=== PATIENT | male | born 1975 | race American Indian/Alaskan Native ===

== ENCOUNTER 2018-02-06 07:30 | Day surgery (SDC) | payer MEDICAID ==
[2018-02-06] MEDS: Lactated Ringers 1,000 ML IV SCH ×2 (06:41→10:00)
[~2018-02-06 07:30] MED LIST: Acetaminophen 500 MG Tab PO ONE; Bupivacaine 0.5%/EPINEPHrine 1:200,000 50 ML MDV ONE; Dexamethasone 4 MG/ML SDV ONE; Gabapentin 300 MG Cap PO ONE; Glycopyrrolate 0.2 MG/ML 5 ML MDV ONE; Ketamine 500 MG/5 ML MDV IV SCH; Neostigmine Methylsulfate 1 MG/ML 5 ML Syringe ONE; Ondansetron 4 MG/2 ML SDV ONE; Povidone-Iodine 10% Soln 118.25 ML Bottle ONE; Propofol 200 MG/20 ML SDV ONE; Rocuronium 50 MG/5 ML Vial ONE; Scopolamine 1.5 MG Transdermal Patch TOP ONE; Succinylcholine 200 MG/10 ML MDV ONE; Thrombin (Bovine) 5,000 Unit Kit ONE; ceFAZolin 2 GM in Premix Bag 1 BAG IV ONE; fentaNYL 250 MCG/5 ML SDV ONE
[2018-02-06] MEDS ORDERED: fentaNYL 250 MCG/5 ML SDV ONE (07:37)
[2018-02-06] MEDS ORDERED: fentaNYL 100 MCG/2 ML SDV ONE (08:53)
[2018-02-06] MEDS ORDERED: hydrOXYzine HCl 100 MG/2 ML SDV IM ONE (09:08)
[2018-02-06] MEDS ORDERED: Sennosides 8.6 MG Tab PO PRN (09:36)
[2018-02-06] MEDS ORDERED: diphenhydrAMINE 25 MG Cap PO PRN (09:36)
[2018-02-06] MEDS ORDERED: Zolpidem 5 MG Tab PO PRN (09:36)
[2018-02-06] MEDS ORDERED: Magnesium Hydroxide 400 MG/5 ML Susp 30 ML Cup PO PRN (09:36)
[2018-02-06] MEDS ORDERED: Morphine 4 MG/ML Syringe IVPUSH PRN (09:36)
[2018-02-06] MEDS ORDERED: Naloxone 0.4 MG/ML SDV IVPUSH PRN (09:36)
[2018-02-06] MEDS ORDERED: Gabapentin 300 MG Cap PO SCH (10:00)
[2018-02-06] MEDS: HYDROmorphone 1 MG/ML Syringe IVPUSH PRN ×4 (11:37→22:21)
[2018-02-06] MEDS: Acetaminophen/oxyCODONE 325-5 MG Tab PO PRN ×3 (12:55→21:09)
--- NOTE | 2018-02-06 13:32 | OR ---
DATE OF PROCEDURE: 02/06/2018 PREOPERATIVE DIAGNOSES: 1. Cervical stenosis, C5-C6. 2. Cervical myelopathy, C5-C6. 3. Cervical radiculopathy, C5-C6. POSTOPERATIVE DIAGNOSES: 1. Cervical stenosis, C5-C6. 2. Cervical myelopathy, C5-C6. 3. Cervical radiculopathy, C5-C6. PROCEDURES: 1. Anterior cervical diskectomy and fusion, C5-C6. 2. Anterior instrumentation, C5-C6. 3. Allograft, C5-C6. 4. Interbody device placement, C5-C6. ANESTHESIA: General endotracheal intubation. FLUID: Lactated Ringer solution. ESTIMATED BLOOD LOSS: 25 mL. COMPLICATIONS: None. SPECIMEN: None. DISCHARGE DISPOSITION: Stable to PACU. INSTRUMENTATION: [employer] AGX plate 20 mm x 9 mm and then the spacer is 10.5 x 20 mm, 7 degree and 9 mm height with two 18 mm x 3.6 mm variable angle screws. INDICATIONS FOR THE PROCEDURE: The patient was seen preoperatively in the clinic. He had already seen another spine surgeon, who wanted him to quit smoking prior to doing the above- mentioned procedure and concurred with the procedure choice. The patient had been working on smoking cessation. He had been found to have a myelomalacia on his MRI for that reason, we proceeded with surgery. Risks and benefits of the procedure were explained with the patient. Informed consent was obtained. DESCRIPTION OF PROCEDURE: The patient was seen preoperatively by myself and the Anesthesia staff in the preoperative holding area where the operative site was marked. He was brought to the operative suite by Anesthesia staff, where general anesthesia was administered. Neuromonitoring leads were placed and normal at baseline. The arms were tucked. A shoulder towel was placed underneath his shoulders. The shoulders were taped. We did confirm prior to prepping and draping that we could obtain adequate visualization of the fluoroscopy unit. We then prepped and draped the patient in a sterile manner. We draped the fluoroscopy unit in a sterile manner. The time-out was called identifying the correct patient, correct procedure, and the correct site, and the antibiotics had begun within appropriate period of time. Lateral fluoroscopy was then used to visualize the C5-C6 interspace and an incision in an oblique manner was made just medial to sternocleidomastoid to that level of the right and carried down to the platysma. Bleeding during the case was controlled. Bovie electrocautery as well as bipolar electrocautery, and Weitlaner were used for retraction. I went over the medial side of the sternocleidomastoid to the fascia and then bluntly dissected down to the prevertebral space. We then used a 40 mm and 45 mm narrow Shadow-Line retractors for retraction and then confirmed the C5-C6 interspace with the Bovie and lateral fluoroscopy. We then cleared the interspace and then used a deep #15 blade to go through the anterior annulus and then removed as much of the disk as we could with pituitaries. I then used the pituitaries as well as rongeurs and a curette to go down and using the intervertebral uppers edge burnisher to go down to the posterior longitudinal ligament and remove as much as disk as possible. I also removed the inferior lip of the superior vertebral body with #2 Kerrison. I then used a nerve hook to go through the posterior longitudinal ligament and then used #2 Kerrison to divide the posterior longitudinal ligament. I did undermine the ligament with a curette superiorly and inferiorly along the vertebral bodies as well. The entire cord was visualized medial to lateral on both sides. This was done because the patient had myelomalacia. We want to make sure we did a thorough decompression. The bleeding during the case at times was controlled with Floseal as well as Gel-Foam and cottonoids. There was a large epidural vein on the patient's left that we used Floseal for, bleeding was controlled without an incident. The sequential spacers were then used and then I finally settled on a 9 mm high wide spacer. I then cleaned up the endplates with the drill and then inserted the spacer again and confirming there was a good position on lateral fluoroscopy. We then inserted our final implant and then all the screw holes and then placed our screws and then took final films that showed the endplate to be in good position. We then copiously irrigated with 2 L of Betadine infused irrigation followed by examination of the prevertebral space and I did use bipolar electrocautery to just take care of any little oozing areas and then placed Floseal at the base and then tamped this dry and then inserted my drain and taken out the lateral side of the wound. I then placed three 2-0 Vicryl stitches to the platysma followed by 3-0 Monocryl, followed by sterile dressing and an Op-Site and placed into the BORIS drain. We did run final motors after closure, which were normal. The patient was then transferred to the hospital bed and taken to the PACU in stable condition. Chino Hagan DO /[id number]
[2018-02-06] MEDS ORDERED: valACYclovir 1,000 MG Tab PO SCH (14:00)
[2018-02-06] MEDS: valACYclovir 1,000 MG Tab PO SCH ×2 (14:53→20:50)
[2018-02-06] MEDS: ceFAZolin 1 GM in Premix Bag 1 BAG IV SCH ×2 (15:02→22:19)
[2018-02-06] MEDS ORDERED: ceFAZolin 1 GM in Sodium Chloride 0.9% 50 ML IV SCH (16:00)
[2018-02-06] MEDS: Gabapentin 300 MG Cap PO SCH ×2 (17:01→21:11)
[2018-02-07] MEDS: HYDROmorphone 1 MG/ML Syringe IVPUSH PRN ×3 (00:25→07:12)
[2018-02-07] MEDS: Acetaminophen/oxyCODONE 325-5 MG Tab PO PRN ×3 (01:12→10:01)
[2018-02-07] MEDS: Gabapentin 300 MG Cap PO SCH ×2 (05:12→10:01)
--- NOTE | 2018-02-07 07:02 | PCM.DCSUM1 ---
Discharge Summary - Discharge Data Discharge Date: 02/07/18 Discharge Disposition: Home, Self-Care 01 Condition: Good - Patient Summary/Data Operative Procedure(s) Performed: acdf c5-6 Consults: Consultations 02/06/18 09:36 OT Evaluation and Treatment [CONS] Routine Please Evaluate and Treat. OT Reason for Consult: Strengthening This query below is only for informational purposes and is not editable. PT Evaluation and Treatment [CONS] Routine Please Evaluate and Treat. PT Reason for Consult: Strengthening This query below is only for informational purposes and is not editable. Respiratory Care Assess and Treatment [CONS] Routine Comment: Physician Instructions: ost Op Pneumonia Prevention - Patient Instructions Diet: Usual Diet as Tolerated Activity: Apply Ice, As Tolerated, No Strenuous Activities Driving: Do Not Drive Showering/Bathing: May Shower Wound/Incision Care: Keep Operative Site/Wound Site Clean and Dry, Change Dressing Daily Notify Provider of: Fever, Increased Pain, Swelling and Redness, Drainage, Nausea and/or Vomiting - Discharge Plan Prescriptions/Med Rec: Acetaminophen/oxyCODONE [Percocet 325-5 MG] 1 tab PO Q6HR #120 tablet Hydrocodone/Acetaminophen [Soudan 10-325 Tablet] 1 tab PO Q6HR #120 tablet Home Medications: Home Meds Cholecalciferol (Vitamin D3) [Vitamin D3] 5,000 unit PO DAILY 12/18/17 [History] Clotrimazole [Clotrimazole 1%] 1 strip TOP TID 12/18/17 [History] Cyclobenzaprine [Flexeril] 1 tab PO Q6H PRN 12/18/17 [History] Gabapentin [Neurontin] 600 mg PO QID 12/18/17 [History] Lisinopril 30 mg PO DAILY 12/18/17 [History] Omeprazole 40 mg PO DAILY 12/18/17 [History] Triamcinolone Acetonide [Triamcinolone Acetonide 0.1% Crm] 1 strip TOP TID 12/18 [History] valACYclovir HCl [valACYclovir] 1,000 mg PO TID 12/18/17 [History] Cider Vinegar [Apple Cider Vinegar] 1 tab PO DAILY 02/06/18 [History] Coffee Extract [Green Coffee Gardner] 400 mg PO DAILY 02/06/18 [History] Forskolin 1 tab PO DAILY 02/06/18 [History] Acetaminophen/oxyCODONE [Percocet 325-5 MG] 1 tab PO Q6HR #120 tablet 02/07/18 [ Rx] Hydrocodone/Acetaminophen [Soudan 10-325 Tablet] 1 tab PO Q6HR #120 tablet [Rx] Patient Handouts: Anterior Cervical Diskectomy and Fusion - General Info Date of Service: 02/07/18 Functional Status: Reports: Pain Controlled, Tolerating Diet, Ambulating, Urinating - Review of Systems General: Reports: No Symptoms HEENT: Reports: No Symptoms Pulmonary: Reports: No Symptoms Cardiovascular: Reports: No Symptoms Gastrointestinal: Reports: No Symptoms Genitourinary: Reports: No Symptoms Musculoskeletal: Reports: Neck Pain, Shoulder Pain Skin: Reports: No Symptoms Neurological: Reports: No Symptoms Psychiatric: Reports: No Symptoms - Patient Data Vitals - Most Recent: Last Vital Signs Temp 97.8 F 02/07/18 03:10 Pulse 94 02/07/18 03:10 Resp 16 02/07/18 03:10 BP 146/88 H 02/07/18 03:10 Pulse Ox 95 02/07/18 03:10 Weight - Most Recent: 266 lb 9.6 oz I&O - Last 24 hours: Intake & Output 02/06/18 02/06/18 02/07/18 14:59 22:59 06:59 Intake Total 1661 1950 1546 Output Total 800 1500 1428 Balance 861 450 118 Med Orders - Current: Current Medications Diphenhydramine HCl (Benadryl) 25 mg PO Q4H PRN PRN Reason: Itching Gabapentin (Neurontin) 600 mg PO QID [facility] Last Admin: 02/07/18 05:12 Dose: 600 mg Hydromorphone HCl (Dilaudid) 2 mg IVPUSH Q2H PRN PRN Reason: Pain Last Admin: 02/07/18 03:03 Dose: 2 mg Lactated Ringer's (Ringers, Lactated) 1,000 mls @ 100 mls/hr IV ASDIRECTED [facility] Last Admin: 02/06/18 10:00 Dose: 100 mls/hr Magnesium Hydroxide (Milk Of Magnesia) 30 ml PO DAILY PRN PRN Reason: Constipation Naloxone HCl (Narcan) 0.2 mg IVPUSH ONETIME PRN PRN Reason: Oversedation Oxycodone/Acetaminophen (Percocet 325-5 Mg) 2 tab PO Q4H PRN PRN Reason: Pain Last Admin: 02/07/18 05:13 Dose: 2 tab Senna (Senna) 8.6 mg PO BID PRN PRN Reason: Constipation Valacyclovir HCl (Valtrex) 1,000 mg PO TID [facility] Last Admin: 02/06/18 20:50 Dose: 1,000 mg Zolpidem Tartrate (Ambien) 5 mg PO BEDTIME PRN PRN Reason: Sleep Discontinued Medications Acetaminophen (Tylenol Extra Strength) 1,000 mg PO ONETIME ONE Stop: 02/06/18 06:01 Last Admin: 02/06/18 05:55 Dose: 1,000 mg Bupivacaine HCl/Epinephrine Bitart (Marcaine 0.5%/Epinephrine 1:200,000) Confirm Administered Dose 50 ml .ROUTE .STK-MED ONE Stop: 02/06/18 07:10 Last Admin: 02/06/18 08:48 Dose: 10 ml Dexamethasone (Dexamethasone) Confirm Administered Dose 4 mg .ROUTE .STK-MED ONE Stop: 02/06/18 07:16 Fentanyl (Sublimaze) Confirm Administered Dose 250 mcg .ROUTE .STK-MED ONE Stop: 02/06/18 07:15 Fentanyl (Sublimaze) Confirm Administered Dose 250 mcg .ROUTE .STK-MED ONE Stop: 02/06/18 07:38 Fentanyl (Sublimaze) Confirm Administered Dose 100 mcg .ROUTE .STK-MED ONE Stop: 02/06/18 08:54 Gabapentin (Neurontin) 300 mg PO ONETIME ONE Stop: 02/06/18 06:01 Last Admin: 02/06/18 05:55 Dose: 300 mg Gabapentin (Neurontin) 600 mg PO QID [facility] Last Admin: 02/06/18 11:08 Dose: Not Given Glycopyrrolate (Robinul) Confirm Administered Dose 1 mg .ROUTE .STK-MED ONE Stop: 02/06/18 07:16 Hydroxyzine HCl (Vistaril) 100 mg IM ONETIME ONE Stop: 02/06/18 09:09 Last Admin: 02/06/18 09:12 Dose: 100 mg Cefazolin Sodium/Dextrose 2 gm (/ Premix) 50 mls @ 100 mls/hr IV ONETIME ONE Stop: 02/06/18 06:29 Last Admin: 02/06/18 07:20 Dose: 100 mls/hr Ketamine HCl 100 mg/ Sodium (Chloride) 100 mls @ 24.6 mls/hr IV ASDIRECTED [facility] Propofol (Diprivan 100 Ml) Confirm Administered Dose 100 mls @ as directed .ROUTE .STK-MED ONE Stop: 02/06/18 07:19 Cefazolin Sodium 1 gm/ Sodium (Chloride) 50 mls @ 100 mls/hr IV Q8H [facility] Stop: 02/07/18 00:29 Cefazolin Sodium/Dextrose 1 gm (/ Premix) 50 mls @ 100 mls/hr IV Q8H [facility] Stop: 02/06/18 22:59 Last Admin: 02/06/18 22:19 Dose: 100 mls/hr Ketamine HCl (Ketalar) 40 mg IV ASDIRECTED [facility] Morphine Sulfate (Morphine) 4 mg IVPUSH Q2H PRN PRN Reason: Pain Last Admin: 02/06/18 10:05 Dose: 4 mg Neostigmine Methylsulfate (Neostigmine) Confirm Administered Dose 5 mg .ROUTE .STK-MED ONE Stop: 02/06/18 07:16 Ondansetron HCl (Zofran) Confirm Administered Dose 4 mg .ROUTE .STK-MED ONE Stop: 02/06/18 07:16 Povidone Iodine (Betadine 10% Soln) Confirm Administered Dose 1 ml .ROUTE .STK- MED ONE Stop: 02/06/18 07:10 Last Admin: 02/06/18 08:42 Dose: 1 ml Propofol (Diprivan 20 Ml) Confirm Administered Dose 200 mg .ROUTE .STK-MED ONE Stop: 02/06/18 07:16 Rocuronium Lerona (Zemuron) Confirm Administered Dose 50 mg .ROUTE .STK-MED ONE Stop: 02/06/18 07:16 Scopolamine (Transderm-Scop) 1.5 mg TOP ONETIME ONE Stop: 02/06/18 06:01 Last Admin: 02/06/18 05:55 Dose: 1.5 mg Succinylcholine Chloride (Quelicin) Confirm Administered Dose 200 mg .ROUTE .STK -MED ONE Stop: 02/06/18 07:16 Thrombin (Thrombin-Jmi) Confirm Administered Dose 10,000 unit .ROUTE .STK-MED ONE Stop: 02/06/18 07:09 Last Admin: 02/06/18 07:25 Dose: 10,000 unit Valacyclovir HCl (Valtrex) 1,000 mg PO TID [facility] - Exam General: Reports: Alert, Oriented HEENT: Reports: Pupils Equal, Pupils Reactive, EOMI, Mucous Membr. Moist/Qulin Neck: Reports: Supple, Trachea Midline Lungs: Reports: Normal Respiratory Effort Extremities: Normal Inspection Skin: Reports: Warm, Dry, Intact Wound/Incisions: Reports: Healing Well, Dressing Dry and Intact, No Drainage Neurological: Reports: No New Focal Deficit Psy/Mental Status: Reports: Alert, Normal Affect, Normal Mood Discharge Operative/Procedures - Procedures Performed Operations: acdf C5-6
[2018-02-07] MEDS: valACYclovir 1,000 MG Tab PO SCH (10:01)
== END 2018-02-07 12:14 | disposition home or self-care (01) ==
LOC: EDSTATUS 07:30 → JP.SDS 07:30 → EDSTATUS 07:30 → JP.MS 09:40 → UNDODISIN 02-07 12:14 → JP.SDS 02-07 12:14
PROVIDERS: ATTEND Orthopaedic Surgery
DX: M48.02 Spinal stenosis, cervical region (principal); G95.89 Other specified diseases of spinal cord; M54.12 Radiculopathy, cervical region; I10 Essential (primary) hypertension; F17.210 Nicotine dependence, cigarettes, uncomplicated
CPT/HCPCS: 22551; 22853; 36415; 76001; 86850; 86900; 86901; 97162; 97530; 97535; A9270; C1713; J0330; J0690; J1100; J1170; J2270; J2405; J2704; J2710; J3010; J3410; J7030; J7120; J3490